=== PATIENT | male | born 1975 | race Caucasian/White ===

== ENCOUNTER 2021-06-24 20:01 | Emergency (ER) | payer BC, SELFPAY ==
[2021-06-24 20:02] VITALS: BP 113/67; PULSE 95; RESP 20; TEMP 36.6; O2SAT 95; BMI 37.8
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
[2021-06-24] MEDS: lidocaine 1% INJ 20 mL INJECTION (20:18)
[2021-06-24] MEDS: tetanus-dipt-pertussis 0.5 mL SDV IM (20:18)
[2021-06-24 21:22] VITALS: BP 118/72; PULSE 92; RESP 18; O2SAT 95
== END 2021-06-24 21:22 | disposition home or self-care (01) ==
PROVIDERS: Emergency Provider Emergency Medicine
DX: S01.111A Laceration without foreign body of right eyelid and periocular area, initial encounter (principal); S01.21XA Laceration without foreign body of nose, initial encounter; V86.59XA Driver of other special all-terrain or other off-road motor vehicle injured in nontraffic accident, initial encounter; Z23 Encounter for immunization
CPT/HCPCS: 12014; 70450; 70486; 72125; 90715; 99282